=== PATIENT | female | born 1945 | race Caucasian/White ===

== ENCOUNTER 2017-09-10 17:27 | Emergency (ER) | payer MEDICARE, BC, SELFPAY ==
[2017-09-10 17:52] VITALS: PULSE 78; RESP 16; TEMP 37.2; O2SAT 98; BMI 29.7
--- NOTE | 2017-09-10 18:04 | HMH.EDUTC ---
[facility] [place] Disposition Clinical Impression: Sinusitis Qualifiers: Sinusitis location: other Chronicity: unspecified Qualified Code(s): J32.9 - Chronic sinusitis, unspecified Disposition: Home, Self-Care Condition on Discharge: Good Instructions: Sinusitis, Sinus Headache, DI for Sinusitis Additional Instructions: Start antibiotic. Sinus infections may take 2-3 days to notice much improvement so be sure to use conservative measures as discussed for symptoms Flonase 2 spray in each nostril daily to help with nasal congestion, sinus an ear pressure/inflammation Lots of Fluids Sleep elevated Humidifer/vaporizer Augmentin can cause GI effects. Probiotics may help to prevent these symptoms Prescriptions: Amoxicillin/Potassium Clav [Augmentin 875-125 Tablet] 1 tab PO Q12H #14 tab Dextromethorphan Polistirex [Delsym] 10 ml PO Q12H PRN #250 konstantin.er.12h PRN Reason: Cough Fluticasone Propionate [Flonase 50mcg nasal spray 16gm] 2 spr NS DAILY #1 bottle Referrals: Nicola Alvarado MD [Primary Care Provider] - Time of Disposition: 18:28 Medical Decision Making - Medical Records Medical records reviewed: Yes: I reviewed the patient's medical records. Vital Signs: 09/10/17 17:52 Temperature 98.9 F Temperature Source Temporal Artery Scan Pulse Rate [Right] 78 Respiratory Rate 16 02 Sat by Pulse Oximetry 98 Oxygen Delivery Method Room Air - Christo Inquiry Pt receiving controlled substance: No Christo was queried for this patient: No [facility] [place] HPI - General Stated complaint: fever,cough Mode of Arrival: Ambulatory Source of Information: Patient Limitations: No Limitations Description of Symptoms (Recalled from Triage Doc. by RN): states flu symptoms HEENT Symptoms (Recalled from RN notes): Yes Resp Symptoms (Recalled from RN notes): No Skin Symptoms (Recalled from RN notes): No MS Symptoms (Recalled from RN notes): No Functional Status (Recalled from RN notes): N - History of Present Illness Provider Complaint: Patient state that she has been having flu like symptoms States that she is having sinus pain and pressure along with cough and sore throat State that she has been running a slight fever and not feeling well with body aches and joint pain States that she feels like she has the flu State that she has been using warm compresses to help with sinus pain - Related Data Previous Rx's Medication Instructions Recorded Amoxicillin/Potassium Clav 1 tab PO Q12H #14 tab 09/10/17 [Augmentin 875-125 Tablet] Dextromethorphan Polistirex 10 ml PO Q12H PRN #250 konstantin.er.12h 09/10/17 [Delsym] Fluticasone Propionate [Flonase 2 spr NS DAILY #1 bottle 09/10/17 50mcg nasal spray 16gm] Allergies Allergy/AdvReac Type Severity Reaction Status Date / Time No Known Allergies Allergy Verified 09/10/17 17:58 - Worker's Comp Is this a Worker's Comp case?: No [facility] History I have reviewed the patient's past medical history: Yes Laterality Cases: Bilateral: Tonsillectomy - *Social History Smoking Status: Current every day smoker Tobacco Type: cigarettes Alcohol Intake: never - Psychiatric History Expresses thoughts of harming self/others: None Suicide Plan Description: No Plan ROS Obtained: Yes All systems reviewed & no additional complaints - Constitutional Constitutional: Reports body ache, Reports chills, Reports fever(s) - ENT Ears, Nose, Mouth, and Throat: Reports sinus pain, Reports sinus pressure, Reports sore throat Physical Exam - General General appearance: alert, in no apparent distress - Expanded ENT Exam Nose exam: Present: sinus tenderness Nasal speculum exam: Bilateral: purulent discharge (dark yellowish green discharge from nose) Comment: Throat red, irritated drainage noted - Respiratory Respiratory exam: Present: normal lung sounds bilaterally. Absent: respiratory distress - Cardiovascular Cardiovascular exam: Present: regular rate, normal rhythm. Absent: JVD - Abdominal E
--- NOTE | 2017-09-10 18:08 | ED_ITS ---
[facility] [place] Disposition Clinical Impression: Sinusitis Qualifiers: Sinusitis location: other Chronicity: unspecified Qualified Code(s): J32.9 - Chronic sinusitis, unspecified Disposition: Home, Self-Care Condition on Discharge: Good Instructions: Sinusitis, Sinus Headache, DI for Sinusitis Additional Instructions: Start antibiotic. Sinus infections may take 2-3 days to notice much improvement so be sure to use conservative measures as discussed for symptoms Flonase 2 spray in each nostril daily to help with nasal congestion, sinus an ear pressure/inflammation Lots of Fluids Sleep elevated Humidifer/vaporizer Augmentin can cause GI effects. Probiotics may help to prevent these symptoms Prescriptions: Amoxicillin/Potassium Clav [Augmentin 875-125 Tablet] 1 tab PO Q12H #14 tab Dextromethorphan Polistirex [Delsym] 10 ml PO Q12H PRN #250 konstantin.er.12h PRN Reason: Cough Fluticasone Propionate [Flonase 50mcg nasal spray 16gm] 2 spr NS DAILY #1 bottle Referrals: Nicola Alvarado MD [Primary Care Provider] - Time of Disposition: 18:28 Medical Decision Making - Medical Records Medical records reviewed: Yes: I reviewed the patient's medical records. Vital Signs: 09/10/17 17:52 Temperature 98.9 F Temperature Source Temporal Artery Scan Pulse Rate [Right] 78 Respiratory Rate 16 02 Sat by Pulse Oximetry 98 Oxygen Delivery Method Room Air - Christo Inquiry Pt receiving controlled substance: No Christo was queried for this patient: No [facility] [place] HPI - General Stated complaint: fever,cough Mode of Arrival: Ambulatory Source of Information: Patient Limitations: No Limitations Description of Symptoms (Recalled from Triage Doc. by RN): states flu symptoms HEENT Symptoms (Recalled from RN notes): Yes Resp Symptoms (Recalled from RN notes): No Skin Symptoms (Recalled from RN notes): No MS Symptoms (Recalled from RN notes): No Functional Status (Recalled from RN notes): N - History of Present Illness Provider Complaint: Patient state that she has been having flu like symptoms States that she is having sinus pain and pressure along with cough and sore throat State that she has been running a slight fever and not feeling well with body aches and joint pain States that she feels like she has the flu State that she has been using warm compresses to help with sinus pain - Related Data Previous Rx's Medication Instructions Recorded Amoxicillin/Potassium Clav 1 tab PO Q12H #14 tab 09/10/17 [Augmentin 875-125 Tablet] Dextromethorphan Polistirex 10 ml PO Q12H PRN #250 konstantin.er.12h 09/10/17 [Delsym] Fluticasone Propionate [Flonase 2 spr NS DAILY #1 bottle 09/10/17 50mcg nasal spray 16gm] Allergies Allergy/AdvReac Type Severity Reaction Status Date / Time No Known Allergies Allergy Verified 09/10/17 17:58 - Worker's Comp Is this a Worker's Comp case?: No [facility] History I have reviewed the patient's past medical history: Yes Laterality Cases: Bilateral: Tonsillectomy - *Social History Smoking Status: Current every day smoker Tobacco Type: cigarettes Alcohol Intake: never - Psychiatric History Expresses thoughts of harming self/others: None Suicide Plan Description: No Plan ROS Obtained: Yes All systems reviewed & no additional complaints - Constitutional Constitutional: Reports body ache, Reports chills, Reports fever(s) - ENT
[2017-09-10 18:33] VITALS: BP 118/72; PULSE 78; RESP 18; TEMP 37.2
[2017-09-10 18:56] LABS: UTC Influenza A Antigen Negative (Negative); UTC Influenza B Antigen Negative (Negative)
== END 2017-09-10 18:40 | disposition home or self-care (01) ==
PROVIDERS: Emergency Provider Nurse Practitioner; PCP Emergency Medicine
DX: J32.9 Chronic sinusitis, unspecified (principal)
CPT/HCPCS: 87804; 96372; 99201

== ENCOUNTER → 2021-08-02 15:31 | Outpatient (CLI) | payer MEDICARE, BC, SELFPAY | PROVIDERS: PCP Emergency Medicine; Visit Provider Nurse Practitioner | DX: Z20.822 Contact with and (suspected) exposure to COVID-19 (principal) | CPT/HCPCS: C9803; U0003; U0005 ==

== ENCOUNTER → 2021-08-04 10:46 | Outpatient (CLI) | payer MEDICARE, BC, SELFPAY | PROVIDERS: Visit Provider Nurse Practitioner | DX: Z20.822 Contact with and (suspected) exposure to COVID-19 (principal) | CPT/HCPCS: C9803; U0003; U0005 ==

== ENCOUNTER 2023-12-03 10:26 | Emergency (ER) | payer MEDICARE, SELFPAY ==
--- NOTE | 2023-12-03 10:47 | EXP.UTC ---
Discharge Plan Disposition Patient Disposition: Home, Self-Care Condition: Good Prescriptions Prescriptions: New sulfamethoxazole-trimethoprim [Bactrim DS] 800-160 mg Tablet 1 tab PO BID Qty: 20 0RF cephalexin 500 mg capsule 500 mg PO QID Qty: 40 0RF mupirocin 2 % ointment 1 applic topical TID 7 Days Qty: 15 0RF No Action Boostrix Tdap 2.5-8-5 Lf-mcg-Lf/0.5mL syringe 0.5 ml IM ONCE Qty: 0.5 0RF Referrals Follow up/Referrals: Duke Shelton DO [Primary Care Provider] - See instructions Activity Restrictions/Add. Instructions Additional Instructions/Restrictions: Keep the affected area clean and dry. Watch the site for signs of worsening infection, such as worsening redness, swelling, drainage, fever. etc. Follow up with your regular doctor within the next 48 to 72 hours to have the wound rechecked. Take the antibiotics as directed and apply the topical antibiotics as directed. Apply warm wet compresses to the affected area three or four times per day for the next few days. GO TO THE ER FOR ANY WORSENING SYMPTOMS The wound culture that we took of the drainage from the site will take 3 days to complete. Make sure you follow up with your doctor to go over these culture results and possibly have your antibiotics adjusted if necessary. Clinical Impressions Clinical Impression: Tick bite, Cellulitis of right leg Instructions Patient Instructions: Cellulitis, DI for Insect Bites and Stings, Cephalexin, Ceftriaxone Injection, Mupirocin Discharge ED Provider: Pasha Reyes [facility] HPI General Stated complaint: imbedded tick, lower R leg Time Seen by Provider: 12/03/23 10:46 History of Present Illness Provider Complaint: She states that 1 week ago she found a tick embedded in her left lower leg. She removed the tick then using tweezers. She states that she is somewhat sure she got all of the tick's head out when she removed it. Since then, she has developed redness and swelling around the site. She denies any fever/chills/malaise/joint pain/body aches. She is not diabetic. Related Data Previous Rx's Medication Instructions Recorded cephalexin 500 mg capsule 500 mg PO QID #40 caps 12/03/23 mupirocin 2 % topical ointment 1 applic topical TID 7 days #15 12/03/23 grams sulfamethoxazole 800 1 tab PO BID #20 tabs 12/03/23 mg-trimethoprim 160 mg tablet (Bactrim DS) Allergies Allergy/AdvReac Type Severity Reaction Status Date / Time No Known Allergies Allergy Verified 04/19/22 11:11 [facility] Disclaimer: The information contained in this section may have been updated after the patient was seen, as this information can be updated by other users. Social History Smoking Status: Current every day smoker tobacco type: cigarettes packs per day: 1 alcohol intake: never substance use type: denies use current occupational status: retired Travel in the last 8 weeks: None ROS Obtained: Yes All systems reviewed & no additional complaints except as documented Constitutional Constitutional: Denies chills and Denies fever(s) Eyes Eyes: Denies eye discharge ENT Ears, Nose, Mouth, and Throat: Denies dizziness, Denies otalgia and Denies sore throat Cardiovascular Cardiovascular: Denies chest pain Respiratory Respiratory: Denies shortness of breath, Denies chest congestion, Denies cough, Denies stridor and Denies wheezing Gastrointestinal Gastrointestingal: Denies nausea or vomiting Musculoskeletal Musculoskeletal: Reports system reviewed and no additional complaints, except as documented and Denies arthralgias Integumentary/Breasts Skin/Breast: Reports as per HPI, Reports redness and Reports wounds Neurologic Neurologic: Denies dizziness and Denies paresthesias Allergic/Immunologic Allergic/Immunologic: Denies wheezing Physical Exam General General appearance: alert and in no apparent distress Head Head exam: atraumatic, normocephalic and normal inspection Eye Eye exam: Present normal appearance, PERRL and EOMI ENT ENT exam: Present normal exam, normal oropharynx, mucous membranes moist, TM's normal bilaterally and normal external ear exam Neck Neck exam: Present normal inspection, full ROM and trachea midline; Absent meningismus or lymphadenopathy Chest Chest inspection: Present normal inspection and symmetric chest wall rise; Absent tenderness Respiratory Respiratory exam: Present normal lung sounds bilaterally; Absent respiratory distress Cardiovascular Cardiovascular exam: Present regular rate and normal rhythm; Absent JVD Abdominal Exam Abdominal exam: Present soft and normal bowel sounds; Absent distention, tenderness or guarding Extremities Exam Extremities exam: Present normal inspection, full ROM and normal capillary refill; Absent calf tenderness Back Exam Back exam: Present normal inspection; Absent tenderness Neurological Exam Neurological exam: Present alert and oriented X3 Psychiatric Psychiatric exam: Present normal affect and normal mood Skin Skin exam: Present erythema (on her left lower leg there is an area of redness that measures 3 cm diameter. there is a small open area on the center of the wound that has a small amount of clear drainage noted. no induration, no edema) Lymphatic Lymphatic Findings: no adenopathy Medical Decision Making Medical Records Medical records reviewed: No I reviewed the patient's medical records. Christo Inquiry Pt receiving controlled substance: No
[2023-12-03 10:50] VITALS: BP 179/99; PULSE 110; RESP 18; TEMP 36.8; O2SAT 95; BMI 30.5
[2023-12-03] MEDS: LIDOCAINE 1% 5ML PF VIAL IM (11:47)
[2023-12-03] MEDS: cefTRIAXone 1GM VIAL 1 GM IM (11:47)
--- NOTE | 2023-12-03 12:02 | PC.NURSE ---
Sent wound culture to lab via tube system.
[2023-12-03 12:07] VITALS: BP 172/99; PULSE 110; RESP 18; TEMP 36.8; O2SAT 95
== END 2023-12-03 12:06 | disposition home or self-care (01) ==
PROVIDERS: Emergency Provider Nurse Practitioner Family; PCP Internal Medicine
DX: W57.XXXA Bitten or stung by nonvenomous insect and other nonvenomous arthropods, initial encounter; L03.116 Cellulitis of left lower limb; S80.862A Insect bite (nonvenomous), left lower leg, initial encounter
CPT/HCPCS: 87070; 87205; 96372; 99204; 99212; G0463; J0696

== ENCOUNTER 2023-12-07 18:00 | Outpatient (CLI) | payer MEDICARE, SELFPAY ==
[2023-12-07 18:36] LABS: Basophils # 0.1 K/mm3 (0-0.2); Basophils % 0.9 % (0.1-2.0); Eosinophils # 0.1 K/mm3 (0.0-0.4); Eosinophils % 1.5 % (0.1-12.0); Hemoglobin 14.9 g/dL (12.2-16.2); Lymphocytes # 1.9 K/mm3 (0.7-4.5); Lymphocytes % 28.5 % (10-50); Mean Corpuscular HGB Conc 31.7 g/dL (31.8-35.4); Mean Corpuscular Hemoglobin 28.3 pg (27.0-31.2); Mean Corpuscular Volume 89.1 fl (81-99); Mean Platelet Volume 8.2 fl (7.4-10.4); Monocytes # 0.6 K/mm3 (0.1-1.0); Monocytes % 8.9 % (1.7-9.3); Neutrophils % 60.2 % (37.0-80.0); Platelet Count 298 K/mm3 (142-424); Red Blood Count 5.28 M/mm3 (4.20-5.40); Red Cell Distribution Width 14.6 % (11.5-17.5); White Blood Count 6.7 K/mm3 (4.8-10.8)
[2023-12-07 19:07] LABS: Hemoglobin A1C 5.7 % (4.0-6.0)
[2023-12-07 19:19] LABS: Alanine Aminotransferase 20 U/L (12-78); Albumin/Globulin Ratio 1.7 (1.1-1.8); Alkaline Phosphatase 85 U/L (38-126); Anion Gap 12.3 mEq/L (5-15); Aspartate Amino Transferase 29 U/L (14-36); Bilirubin,Total 1.2 mg/dl (0.2-1.3); Blood Urea Nitrogen 17 mg/dl (7-17); Calcium 9.5 mg/dl (8.4-10.2); Carbon Dioxide 25 mmol/L (22.0-30.0); Chloride 105 mmol/L (98-107); Chol/HDL Ratio 3.6 (1-3.5); Cholesterol 212 mg/dl (140-200); Estimated Glomerular Filt Rate 70 ml/min (>60); GFR (African American) 84 ML/MIN (>60); Globulin 2.3 g/dL (1.3-3.2); Glucose 116 mg/dl (74-100); HDL Cholesterol 59 mg/dl (40-60); Potassium 4.3 mmoL/L (3.5-5.1); Sodium 138 mmol/L (136-145); Total Protein,Serum 6.3 g/dl (6.3-8.2); Triglycerides 122 mg/dl (30-150); VLDL Cholesterol 24 mg/dL (0-40)
[2023-12-07 19:30] LABS: Direct LDL Cholesterol 129.33 mg/dL (100-129)
[2023-12-07 19:51] LABS: Thyroid Stimulating Hormone 1.68 uIU/mL (0.465-4.68)
[2023-12-13 11:19] LABS: Lyme B. burgdorferi PCR Blood Negative (Negative)
== END 2023-12-07 23:59 | disposition home or self-care (01) ==
LOC: LAB.DROPOF 12-08 09:06
PROVIDERS: PCP Family Medicine; Visit Provider Family Medicine
DX: R73.09 Other abnormal glucose (principal); R53.83 Other fatigue; D64.9 Anemia, unspecified; E78.5 Hyperlipidemia, unspecified; W57.XXXA Bitten or stung by nonvenomous insect and other nonvenomous arthropods, initial encounter
CPT/HCPCS: 80053; 80061; 83036; 84443; 85025; 87476

== ENCOUNTER 2024-03-07 07:13 | Outpatient (CLI) | payer MEDICARE, SELFPAY ==
[2024-03-07 09:05] LABS: Alanine Aminotransferase 28 U/L (12-78); Albumin Level 3.7 g/dl (3.5-5.0); Albumin/Globulin Ratio 1.5 (1.1-1.8); Alkaline Phosphatase 68 U/L (38-126); Anion Gap 6.9 mEq/L (5-15); Aspartate Amino Transferase 30 U/L (14-36); Bilirubin,Total 1.2 mg/dl (0.2-1.3); Blood Urea Nitrogen 18 mg/dl (7-17); Calcium 9.2 mg/dl (8.4-10.2); Carbon Dioxide 32 mmol/L (22.0-30.0); Chloride 107 mmol/L (98-107); Chol/HDL Ratio 2.9 (1-3.5); Cholesterol 160 mg/dl (140-200); Estimated Glomerular Filt Rate 97 ml/min (>60); GFR (African American) 117 ML/MIN (>60); Globulin 2.5 g/dL (1.3-3.2); Glucose 88 mg/dl (74-100); HDL Cholesterol 55 mg/dl (40-60); Potassium 3.9 mmoL/L (3.5-5.1); Sodium 142 mmol/L (136-145); Total Protein,Serum 6.2 g/dl (6.3-8.2); Triglycerides 95 mg/dl (30-150); VLDL Cholesterol 19 mg/dL (0-40)
[2024-03-07 09:16] LABS: Direct LDL Cholesterol 79.29 mg/dL (100-129)
[2024-03-07 09:18] LABS: Hemoglobin A1C 5.2 % (4.0-6.0)
== END 2024-03-07 23:59 | disposition home or self-care (01) ==
LOC: LAB 07:14
PROVIDERS: PCP Family Medicine; Visit Provider Family Medicine
DX: E78.5 Hyperlipidemia, unspecified (principal); R73.03 Prediabetes
CPT/HCPCS: 36415; 80053; 80061; 83036

== ENCOUNTER 2024-10-06 10:16 | Outpatient (CLI) | payer MEDICARE, SELFPAY ==
--- NOTE | 2024-10-06 10:17 | MM_ITS ---
PROCEDURE INFORMATION: Exam: Bilateral Screening 3D Mammography Exam date and time: 10/06/2024 10:20 AM Age: 78 years old Clinical indication: Screening examination TECHNIQUE: Imaging protocol: Bilateral Screening tomosynthesis and 2D mammography including computer-aided detection (CAD) when performed. COMPARISON: No relevant prior studies available. FINDINGS: MAMMOGRAPHY: Breast composition: The breasts are heterogeneously dense, which may obscure small masses. Mass: None. Architectural distortion: None. Calcifications: No suspicious calcifications. Asymmetric density: None. Skin thickening: None. Axillary adenopathy: None. IMPRESSION: No mammographic evidence of malignancy. Annual screening is recommended unless otherwise clinically indicated. ASSESSMENT: BI-RADS Category 1: Negative.
== END 2024-10-06 23:59 | disposition home or self-care (01) ==
LOC: RAD 10:17
PROVIDERS: PCP Family Medicine; Visit Provider Family Medicine
DX: Z12.31 Encounter for screening mammogram for malignant neoplasm of breast (principal)
CPT/HCPCS: 77063; 77067

== ENCOUNTER 2024-12-25 11:30 | Day surgery (SDC) | payer MEDICARE, SELFPAY ==
[2024-12-23 14:34] VITALS: BMI 29.8
[2024-12-25 11:44] VITALS: BP 149/98; PULSE 99; RESP 18; TEMP 36.4; O2SAT 96
[2024-12-25] MEDS: LACTATED RINGERS 1000ML 1,000 ML 50 ML IV (12:06)
--- NOTE | 2024-12-25 12:29 | P.PNANES_ITS ---
[facility] Disclaimer: The information contained in this section may have been updated after the patient was seen, as this information can be updated by other users. Medical History Positive colorectal cancer screening using Cologuard test Bronchitis Sinusitis Simple chronic bronchitis Dog bite of hand without complication Hyperlipidemia Surgical History Hx of appendectomy History of tonsillectomy and adenoidectomy Family History Mother Kidney disease Social History Smoking Status: Current every day smoker tobacco type: cigarettes packs per day: 1 alcohol intake: never substance use type: denies use current occupational status: retired Travel in the last 8 weeks?: None Have you lived/traveled outside [place] in past 30 days?: No Contact w/someone who lives/traveled outside US past 30 days?: No Exposure to someone with infectious disease in past 14 days?: No Do you have a fever (greater than 100.4 F or 38 C)?: No Have you tested positive for COVID-19?: No Exposed to someone with COVID-19 in past 14 days?: No Do you have a sore throat?: No Do you have a cough?: No Do you have any weakness?: No Are you experiencing any nausea/vomitting?: No Do you have any diarrhea?: No Are you experiencing any unusual bleeding?: No Do you have any muscle aches/pain?: No Do you have any abdominal pain?: No Are you experiencing loss of taste or smell?: No [facility] Anesthesia Checklist Patient Identification Patient Identification: Arm Band and Verbal (Name & ) Structural Data Admitted From: Home Planned Operative Procedure/s: colonoscopy Consent for Planned Operative Procedure(s) Verified: Yes Verified Documents: Surgical Consent NPO Status Verified Time NPO: 00:00 Additional verifications Anesthesia Reactions: No Airway Assessment Mallampati Score:: Class II C-Spine Mobility Assessed: No TMJ Mobility Assessed: No Dentition: Good Dentition Neurological Assessment Level of Consciousness: Awake, Alert and Appropriate Hx Seizures: No Numbness or tingling in extremities: No Anesthesia Plan Anesthesia Risk discussed: Yes Anesthesia Plan: Verified ASA Class: II Anesthesia Type: MAC
--- NOTE | 2024-12-25 13:43 | P.HP_ITS ---
History of Present Illness *Admission Date: 12/25/24 *Reason for visit:: Positive Cologuard *History of present illness: Mrs. Gresham is a 78-year-old female who is here for positive Cologuard. She does have some loose stools and flatulence. The examination is deemed medically necessary for screening colonoscopy. The patient has been seen, interviewed and examined prior to the procedure by both myself and the anesthesia provider. [facility] Disclaimer: The information contained in this section may have been updated after the patient was seen, as this information can be updated by other users. Medical History Positive colorectal cancer screening using Cologuard test Bronchitis Sinusitis Simple chronic bronchitis Dog bite of hand without complication Hyperlipidemia Surgical History Hx of appendectomy History of tonsillectomy and adenoidectomy Family History Mother Kidney disease Social History Smoking Status: Current every day smoker tobacco type: cigarettes packs per d ay: 1 alcohol intake: never substance use type: denies use current occupational status: retired Travel in the last 8 weeks?: None Have you lived/traveled outside US in past 30 days?: No Contact w/someone who lives/traveled outside [place] past 30 days?: No Exposure to someone with infectious disease in past 14 days?: No Do you have a fever (greater than 100.4 F or 38 C)?: No Have you tested positive for COVID-19?: No Exposed to someone with COVID-19 in past 14 days?: No Do you have a sore throat?: No Do you have a cough?: No Do you have any weakness?: No Are you experiencing any nausea/vomitting?: No Do you have any diarrhea?: No Are you experiencing any unusual bleeding?: No Do you have any muscle aches/pain?: No Do you have any abdominal pain?: No Are you experiencing loss of taste or smell?: No Other Medical History Have you received the Flu Vaccine for this season: No Have you received the Pneumonia Vaccine: No Review of Systems Review of Systems Review of systems (narrative): Negative *Cardiovascular Comments: Negative *Gastrointestinal Comments: Negative *Genitourinary Comments: Negative *Musculoskeletal Comments: Negative *Neurologic Comments: Negative Meds Home Medications and Allergies Home Medications ?Medication ?Instructions ?Recorded ?Confirmed ?Type atorvastatin 10 mg tablet (Lipitor) 10 mg PO HS Cholesterol #90 tabs 09/15/24 12/25/24 Rx multivitamin 1 tab PO DAILY 11/25/24 12/25/24 History New Prescriptions to Start Prescriptions: Allergies Allergy/AdvReac Type Severity Reaction Status Date / Time No Known Allergies Allergy Verified 12/25/24 11:41 Exam Data for Last 24 hours Vital signs and Labs for Last 24 Hours: Temp Pulse Resp BP Pulse Ox O2 Del Method 97.6 F 99 H 18 149/98 H 96 Room Air 12/25/24 11:44 12/25/24 11:44 12/25/24 11:44 12/25/24 11:44 12/25/24 11:44 12/25/24 11:44 I & O for Last 24 hours: Intake & Output 12/22/24 12/23/24 12/24/24 12/25/24 23:59 23:59 23:59 23:59 Weight 185 lb *Routine HEENT Exam Head: Present normocephalic Eye: Present EOMI and PERRL ENT: Present mucous membranes moist *Routine Neck Exam Neck: Present supple *Routine Respiratory Exam Respiratory: Present CTA bilaterally *Routine Cardiovascular Exam Cardiovascular: Present RRR *Routine Abdominal Exam Abdominal: Present soft and normoactive bowel sounds; Absent tenderness *Routine Rectal Exam Rectal:: deferred *Routine Genitalia Exam Genitalia:: deferred *Routine Extremities Exam Extremities: Absent cyanosis, clubbing or edema *Routine Skin Exam Skin: Present warm; Absent rash *Routine Neurological Exam Neurological: Present alert and oriented X3 Assessment and Plan *Assessment and plan (1) Positive colorectal cancer screening using Cologuard test: Status: Acute Category: Medical Code(s): R19.5 - Other fecal abnormalities Plan A/P: 1. Positive Cologuard is the preprocedural diagnosis. The patient will be anesthetized/sedated using MAC sedation. The patient has been seen and examined. Cardiac and lung assessment prior to the examination is stable. Proceed with planned screening colonoscopy.
--- NOTE | 2024-12-25 13:44 | P.PCN_ITS ---
[facility] Procedure Note Date: 12/25/24 Time: 14:20 Procedure Note:: Colonoscopy Procedure Report: Colonoscopy with cold snare polypectomy Endoscopist: Alkesandr Waldron II, MD Referring physician: KATELYNN Crystal Date of Procedure: December 25, 2024 Equipment: Olympus 190 variable stiffness pediatric colonoscope Sedation: MAC sedation Indication: Mrs. Gresham is a 78-year-old female with a positive Cologuard test. She has never had a colonoscopy. She does report some increase in flatulence an d occasionally loose stools. She has had multiple Cologuard tests or Hemoccult tests in the past which have all been negative but her Cologuard 2 or 3 months ago was positive. She reports no abdominal pain, weight loss, rectal bleeding or family history of colon cancer. Procedure: Prior to the procedure, a history and physical exam was performed, and patient's medications and allergies were reviewed. The risks, benefits and alternatives of the sedation and procedure were discussed with the patient. All questions were answered and informed consent was obtained. The patient was brought to the procedure room. Patient identification and proposed procedure were verified by the physician and the nurse. The patient was placed in a left lateral decubitus position and the scope was passed under direct vision. Throughout the procedure, the patient's blood pressure, pulse, and oxygen saturations were monitored continuously. The colonoscopy was accomplished without difficulty. The patient tolerated the procedure well. Findings: On digital rectal examination there was normal rectal tone. There were no external hemorrhoids. The colonoscope was introduced through the anal canal to the rectum and advanced to the cecum. The ileocecal valve and appendiceal orifice were identified. The scope was advanced a short distance into the ileum which appeared grossly normal. The scope was then withdrawn into the colon. There were a total of 22 colon polyps (ascending x 1 (8 mm), transverse x 4 (4, 5, 6 and 8 mm), descending x 1 (7 mm) and sigmoid and rectosigmoid x 16 (ranging in size from 3 to 8 mm)). These were all removed via cold snare polypectomy. Upon retroflexion within the rectum there were grade 1-2 internal hemorrhoids. The preparation was excellent throughout with [place] Preparation Score of 9. The cecal time was 24 minutes. Impression: 1. Colonic polyps x 22 Plan: I will follow-up the polyp histology and recommend repeat surveillance colonoscopy again in 1 year based on the number and size of these which are mostly adenomas/serrated adenomas. I will discuss the findings with the patient and family.
[2024-12-25 14:23] VITALS: BP 109/63; PULSE 80; RESP 16; TEMP 36.1; O2SAT 93
[2024-12-25 14:33] VITALS: BP 106/61; PULSE 90; RESP 16; O2SAT 96
[2024-12-25 14:41] VITALS: BP 120/70; PULSE 78; RESP 16; O2SAT 97
[2024-12-25 14:50] VITALS: BP 131/76; PULSE 76; RESP 16; O2SAT 97
== END 2024-12-25 14:52 | disposition home or self-care (01) ==
PROVIDERS: PCP Family Medicine; Visit Provider Internal Medicine Gastroenterology
PROC: 0DJD8ZZ Inspection of Lower Intestinal Tract, Via Natural or Artificial Opening Endoscopic (ICD-10-PCS; CPT 45378; principal; 2024-12-25 13:00)
DX: Z12.11 Encounter for screening for malignant neoplasm of colon (principal); R19.5 Other fecal abnormalities; D12.2 Benign neoplasm of ascending colon; D12.5 Benign neoplasm of sigmoid colon; D12.3 Benign neoplasm of transverse colon; K63.5 Polyp of colon; K64.8 Other hemorrhoids
CPT/HCPCS: 45385; J7120

== ENCOUNTER 2025-03-16 09:05 | Outpatient (CLI) | payer MEDICARE, SELFPAY ==
[2025-03-16 15:15] LABS: Hematocrit 46.1 % (37.0-47.0); Hemoglobin 14.8 g/dL (12.2-16.2); Immature Granulocytes % 0.4 %; Mean Corpuscular HGB Conc 32.1 g/dL (31.8-35.4); Mean Corpuscular Hemoglobin 27.5 pg (27.0-31.2); Mean Corpuscular Volume 85.7 fl (81-99); Nucleated Red Blood Cells % 0 %; Platelet Count 259 K/mm3 (142-424); Red Blood Count 5.38 M/mm3 (4.20-5.40); Red Cell Distribution Width-SD 45.6 fL; White Blood Count 5.6 K/mm3 (4.8-10.8)
[2025-03-16 16:00] LABS: Alanine Aminotransferase 21 U/L (12-78); Albumin Level 4.0 g/dl (3.5-5.0); Albumin/Globulin Ratio 1.8 (1.1-1.8); Alkaline Phosphatase 88 U/L (38-126); Anion Gap 10.5 mEq/L (5-15); Aspartate Amino Transferase 30 U/L (14-36); Bilirubin,Total 1.1 mg/dl (0.2-1.3); Blood Urea Nitrogen 15 mg/dl (7-17); Calcium 9.3 mg/dl (8.4-10.2); Carbon Dioxide 28 mmol/L (22.0-30.0); Chloride 105 mmol/L (98-107); Cholesterol 180 mg/dl (140-200); Creatinine,Serum 0.50 mg/dl (0.52-1.04); Estimated Glomerular Filt Rate 119 ml/min (>60); GFR (African American) 144 ML/MIN (>60); Globulin 2.2 g/dL (1.3-3.2); Glucose 83 mg/dl (74-100); HDL Cholesterol 54 mg/dl (40-60); Potassium 4.5 mmoL/L (3.5-5.1); Sodium 139 mmol/L (136-145); Total Protein,Serum 6.2 g/dl (6.3-8.2); Triglycerides 90 mg/dl (30-150)
[2025-03-16 16:29] LABS: Thyroid Stimulating Hormone 3.17 uIU/mL (0.465-4.68)
[2025-03-16 16:32] LABS: Hemoglobin A1C 5.6 % (4.0-6.0)
== END 2025-03-16 23:59 | disposition home or self-care (01) ==
LOC: LAB.DROPOF 03-17 14:41
PROVIDERS: PCP Family Medicine; Visit Provider Family Medicine
DX: E78.5 Hyperlipidemia, unspecified (principal); R73.03 Prediabetes
CPT/HCPCS: 80053; 80061; 83036; 84443; 85025